=== PATIENT | male | born 1985 | race Caucasian/White ===

== ENCOUNTER 2025-02-05 14:07 | Emergency (ER) | payer BC, SELFPAY ==
[~2025-02-05] VITALS: Ht 177.8 cm; Wt 142.3 kg
[2025-02-05 14:20] VITALS: TEMP 98.1
[2025-02-05 15:18] LABS: AMPHETAMINES LEVEL URINE NEGATIVE (NEGATIVE); BARBITURATES URINE NEGATIVE (NEGATIVE)
[2025-02-05 15:19] LABS: BENZODIAZEPINES URINE NEGATIVE (NEGATIVE); CANNABINOIDS URINE NEGATIVE (NEGATIVE); COCAINE METABOLITE URINE NEGATIVE (NEGATIVE); METHADONE URINE NEGATIVE (NEGATIVE); OPIATES URINE NEGATIVE (NEGATIVE); PHENCYCLIDINE URINE NEGATIVE (NEGATIVE)
[2025-02-05 15:21] LABS: PLATELET COUNT, AUTOMATED 231 10^3/uL (150-450)
[2025-02-05 15:34] LABS: ETHYL ALCOHOL (ETHANOL) 0.240 % (0.000-0.010)
[2025-02-05 15:35] LABS: ALT/SGPT 27 U/L (7.0-40); AST/SGOT 17 U/L (<34); CALCIUM LEVEL 8.6 MG/DL (8.5-10.1); CARBON DIOXIDE LEVEL 28 MMOL/L (20-31); CHLORIDE LEVEL 103 MMOL/L (98-107); CREATININE FOR GFR 0.68 MG/DL (0.70-1.30); GLOMERULAR FILTRATION RATE > 90.0 (>60); POTASSIUM SERUM 3.9 MMOL/L (3.5-5.1); SALICYLATE LEVEL < 3.0 MG/DL (<30); SODIUM LEVEL 141 MMOL/L (136-145)
[2025-02-05 19:33] VITALS: BP 112/58; O2SAT 98
== END 2025-02-05 20:09 | disposition home or self-care (01) ==
LOC: M ED 14:07
DX: F43.0 Acute stress reaction (principal); I10 Essential (primary) hypertension; F32.A Depression, unspecified; F10.10 Alcohol abuse, uncomplicated; Z90.49 Acquired absence of other specified parts of digestive tract